=== PATIENT | female | born 1990 | race Two or more races ===

== ENCOUNTER → 2024-11-20 | Emergency (ER) | payer OTHER ==
[~2024-11-20] VITALS: Ht 157.5 cm; Wt 54.4 kg
[~2024-11-20] MED LIST: SYNTHROID75 MCG PO
[2024-11-20 14:29] LABS: URINE APPEARANCE Clear; URINE BILIRRUBIN Negative (NEGATIVE); URINE BLOOD Negative; URINE COLOR Yellow; URINE GLUCOSE Negative (NEGATIVE); URINE KETONE Negative (NEGATIVE); URINE LEUKOCYTE Small; URINE NITRATE Negative; URINE PROTEIN Negative (NEGATIVE); URINE UROBILINOGEN 0.2 E.U./dl
[2024-11-20 14:33] LABS: URINE BACTERIA 173.9 uL (0.0-1933); URINE EPITHELIAL CELLS 9.9 uL (0.0-38.8); URINE RBC 13.3 uL (0.0-20.8); URINE WBC 138.1 uL (0.0-23.2)
[2024-11-20 14:36] LABS: URINE CAST 0.14 uL (0.0-1.40)
== END | disposition home or self-care (01) ==
LOC: ER 12:45
PROVIDERS: General Practice
DX: N76.0 Acute vaginitis (principal); N39.0 Urinary tract infection, site not specified; E03.9 Hypothyroidism, unspecified